=== PATIENT | female | born 1985 | race African-American/Black ===

== ENCOUNTER 2020-08-11 10:56 | Emergency (ER) | payer BC, OTHER ==
[~2020-08-11] VITALS: Ht 170.2 cm; Wt 80.0 kg
[~2020-08-11 10:56] MED LIST: CIPR500T94 PO; DOCU-109 PO; HYDR-2761 PO; METR500T PO
[2020-08-11 12:03] VITALS: BP 162/97
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
[2020-08-11 13:14] LABS: BARBITURATES NEG (NEG); BENZODIAZEPINES NEG (NEG); CANNABINOIDS NEG (NEG); COCAINE NEG (NEG); METHADONE NEG (NEG); OPIATES NEG (NEG); PHENCYCLIDINE NEG (NEG)
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
[2020-08-11 13:20] LABS: AMPHETAMINE/METHAMPHETAMINE NEG (NEG)
== END 2020-08-11 14:06 | disposition home or self-care (01) ==
LOC: ER 10:56
DX: S06.0X0A Concussion without loss of consciousness, initial encounter (principal); H11.33 Conjunctival hemorrhage, bilateral; R55 Syncope and collapse; F17.200 Nicotine dependence, unspecified, uncomplicated; Y04.0XXA Assault by unarmed brawl or fight, initial encounter; Y93.89 Activity, other specified; Y92.89 Other specified places as the place of occurrence of the external cause; Y99.8 Other external cause status
CPT/HCPCS: 70450; 70486; 80307; 81025; 99285-25